=== PATIENT | male | born 1970 | race Caucasian/White ===

== ENCOUNTER 2023-04-23 16:09 | Emergency (ER) | payer OTHER ==
[2023-04-23] MEDS: Sodium Chloride 0.9% 1000 ML 1,000 ML IV STA ×2 (16:56)
[2023-04-23 17:04] VITALS: RESP 16; TEMP 98.2
[2023-04-23] MEDS: Rabavert 2.5 UNITS IM ONE (17:28)
--- NOTE | 2023-04-23 17:29 | ERPHSYRPT ---
- History of Present Illness Time Seen by Provider: 04/23/23 17:25 Source: patient Exam Limitations: no limitations Patient Subjective Stated Complaint: PT to er c/o dog bite to left forearm. 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 Friday evening at 615 pm. Incident was in [facility] [place] and a dog bite report has been filed. pt arrives with one puncture wound noted to left back of forearm. area is clean and dry with slight white slough noted to inner puncture area. tenderness noted no reportable fever or signs of infection. Dog was taken in by [employer] and it was found that he has not been vacinated. PT is employed [employer] and is wanting pt to have Rabies shots and Tentas. PT reports having a tetnas shot on Jul 27 2021 Triage Nursing Assessment: see above Physician History: Patient is a 52-year-old white male who works for the [employer] company suffered a dog bite to the left forearm 3 days ago his employer sent him in today to start his rabies vaccine and to make sure his tetanus status was current. [facility] an animal control in [facility]. Apparently the dog has had no vaccinations. Timing/Duration: day(s) (3) Severity: mild Allergies/Adverse Reactions: No Known Drug Allergies Allergy (Unverified 05/07/13 09:29) Home Medications: Metoprolol/Hydrochlorothiazide [Metoprolol-Hctz 100-25 mg Tab] 1 each PO DAILY 04/23/23 [History] Rosuvastatin Calcium 20 mg PO DAILY 04/23/23 [History] Hx Tetanus, Diphtheria Vaccination/Date Given: Yes (Jul 27 2021) Hx Influenza Vaccination/Date Given: No Hx Pneumococcal Vaccination/Date Given: No Immunizations Up to Date: Yes Travel Risk - International Travel Have you traveled outside of the country in past 3 weeks: No - Coronavirus Screening Are you exhibiting any of the following symptoms?: No Close contact with a COVID-19 positive Pt in past 14-21 Days: No - Vaccine Status Have you recieved a Covid-19 vaccination: Yes Identity Management Developer: Moderna - Vaccination Dates Date of 2cond Vaccination (if applicable): 2020 - Review of Systems Constitutional: No Fever, No Chills Eyes: No Symptoms Ears, Nose, & Throat: No Symptoms Respiratory: No Cough, No Dyspnea Cardiac: No Chest Pain, No Edema, No Syncope Abdominal/Gastrointestinal: No Abdominal Pain, No Nausea, No Vomiting, No Diarrhea Genitourinary Symptoms: No Dysuria Musculoskeletal: No Back Pain, No Neck Pain Skin: No Rash Neurological: No Dizziness, No Focal Weakness, No Sensory Changes Psychological: No Symptoms Endocrine: No Symptoms All Other Systems: Reviewed and Negative - Past Medical History Pertinent Past Medical History: Yes Neurological History: No Pertinent History Cardiac History: Hypertension History: No Pertinent History Male Reproductive Disorders: No Pertinent History - Past Surgical History Past Surgical History: Yes Musculoskeletal: Other - Social History Smoking Status: Never smoker Exposure to second hand smoke: No Drug Use: none Patient Lives Alone: No - Nursing Vital Signs Nursing Vital Signs: Initial Vital Signs Temperature 98.2 F 04/23/23 16:09 Respiratory Rate 16 04/23/23 16:09 Pain Scale Pain Intensity 2 - Physical Exam General Appearance: no apparent distress, mild distress, alert Eye Exam: PERRL/EOMI, eyes nml inspection Ears, Nose, Throat Exam: normal ENT inspection, TMs normal, pharynx normal, moist mucous membranes Neck Exam: normal inspection, non-tender, supple, full range of motion Respiratory Exam: normal breath sounds, lungs clear, No respiratory distress Cardiovascular Exam: regular rate/rhythm, normal heart sounds, normal peripheral pulses Gastrointestinal/Abdomen Exam: soft, normal bowel sounds, No tenderness, No mass Back Exam: normal inspection, normal range of motion, No CVA tenderness, No vertebral tenderness Extremity Exam: normal inspection, normal range of motion, pelvis stable Neurologic Exam: alert, oriented x 3, cooperative, normal mood/affect, nml cerebellar function, nml station & gait, sensation nml, No motor deficits Skin Exam: normal color, warm, dry, other (Small puncture wound left forearm), No rash Lymphatic Exam: No adenopathy - Course Nursing assessment & vital signs reviewed: Yes Ordered Tests: Medication Summary Generic Name Dose Route Start Last Admin Trade Name Freq PRN Reason Stop Dose Admin Rabies Vaccine 2.5 units 04/23/23 17:30 Rabies Vac,Pf Chick-Emb Cell 2.5 Units Kit IM 04/23/23 17:31 .ONCE ONE Discontinued Medications Generic Name Dose Route Start Last Admin Trade Name Freq PRN Reason Stop Dose Admin Sodium Chloride 1,000 mls @ 999 mls/hr 04/23/23 16:22 04/23/23 16:56 Sodium Chloride 0.9% 1000 Ml IV 04/23/23 17:22 Not Given .Q1H1M STA Sodium Chloride 1,000 mls @ 999 mls/hr 04/23/23 16:16 04/23/23 16:56 Sodium Chloride 0.9% 1000 Ml IV 04/23/23 17:16 Not Given .Q1H1M STA - Progress Progress: improved Medical Desision Making - Risk of complications Minimal Risk: Minimal risk of morbidity - Departure Departure Disposition: Home Clinical Impression: Dog bite Condition: Stable Critical Care Time: No Referrals: DMITRY FREY [Primary Care Provider] - Follow up/PCP as directed Instructions: Animal Bites (DC) Additional Instructions: Return as directed to the transfusion center for the remainder of your rabies series.
[2023-04-23 18:15] VITALS: BP 152/78; PULSE 72; O2SAT 97
== END 2023-04-23 17:50 | disposition home or self-care (01) ==
LOC: ED 16:09
DX: S50.872A Other superficial bite of left forearm, initial encounter (principal); W54.0XXA Bitten by dog, initial encounter; Y93.01 Activity, walking, marching and hiking; Y92.007 Garden or yard of unspecified non-institutional (private) residence as the place of occurrence of the external cause; Y99.0 Civilian activity done for income or pay; Z23 Encounter for immunization; I10 Essential (primary) hypertension; Z79.899 Other long term (current) drug therapy
CPT/HCPCS: 90471; 90675; 99282